=== PATIENT | male | born 1970 | race American Indian/Alaskan Native ===

== ENCOUNTER 2017-08-14 11:10 | Emergency (ER) | payer OTHER ==
[2017-08-14 11:23] VITALS: BP 162/99
--- NOTE | 2017-08-14 12:48 | Emergency Department Report ---
ED General Adult HPI - General Chief complaint: Pain General Stated complaint: DIABETIC/BILATERAL LEG PAIN Time Seen by Provider: 08/14/17 12:24 Source: patient Mode of arrival: Ambulatory Limitations: No Limitations - History of Present Illness Initial comments: This is a 47-year-old male with history of hypertension and non-insulin- dependent diabetes who presents with body aches over the last 2 weeks. He has a pins and needles sensation especially in his lower extremities. He was evaluated by his PCP Dr. Bunch in the [facility] this past Tuesday. Dr. Bunch has arranged for outpatient referrals. Patient came to the ER for a " full physical". He requested x-rays of his legs. No difficulty with ambulation. No recent trauma. -: Gradual, week(s) (2) Location: upper extremity, lower extremity Severity scale (0 -10): 6 Quality: aching Consistency: constant Improves with: none Worsens with: none - Related Data Allergies Allergy/AdvReac Type Severity Reaction Status Date / Time No Known Allergies Allergy Unverified 08/14/17 11:23 ED Review of Systems ROS: Stated complaint: DIABETIC/BILATERAL LEG PAIN Other details as noted in HPI Comment: All other systems reviewed and negative Constitutional: denies: fever, malaise ENT: denies: throat pain Respiratory: denies: cough Cardiovascular: denies: chest pain, palpitations Endocrine: denies: excessive sweating ED Past Medical Hx - Past Medical History Hx Hypertension: Yes Hx Diabetes: Yes ED Physical Exam - General Limitations: No Limitations General appearance: alert, in no apparent distress - Head Head exam: Present: atraumatic, normocephalic - Eye Eye exam: Present: normal appearance - ENT ENT exam: Present: mucous membranes moist - Neck Neck exam: Present: normal inspection. Absent: tenderness, meningismus - Respiratory Respiratory exam: Present: normal lung sounds bilaterally. Absent: respiratory distress, wheezes, rales, rhonchi - Cardiovascular Cardiovascular Exam: Present: regular rate, normal rhythm, normal heart sounds. Absent: bradycardia, tachycardia, systolic murmur, diastolic murmur, rubs, gallop - GI/Abdominal GI/Abdominal exam: Present: soft, normal bowel sounds. Absent: distended, tenderness, guarding, rebound - Rectal Rectal exam: Present: deferred - Extremities Exam Extremities exam: Present: normal inspection - Back Exam Back exam: Present: normal inspection - Neurological Exam Neurological exam: Present: alert, oriented X3 - Psychiatric Psychiatric exam: Present: normal affect, normal mood - Skin Skin exam: Present: warm, dry, intact, normal color. Absent: rash ED Course Vital Signs 08/14/17 11:19 Temperature 98.0 F Pulse Rate 54 L Respiratory 16 Rate Blood Pressure 162/99 O2 Sat by Pulse 92 Oximetry ED Medical Decision Making - Lab Data Result diagrams: 08/14/17 13:12 08/14/17 13:12 Laboratory Results - last 24 hr 08/14/17 08/14/17 13:12 13:12 WBC 7.3 RBC 6.14 H Hgb 15.1 Hct 44.9 MCV 73 L MCH 25 L MCHC 34 RDW 17.5 H Plt Count 265 Lymph % (Auto) 30.9 Moffat % (Auto) 7.6 H Eos % (Auto) 1.6 Baso % (Auto) 0.6 Lymph # 2.3 Moffat # 0.6 Eos # 0.1 Baso # 0.0 Seg Neutrophils % 59.3 Seg Neutrophils # 4.3 Sodium 138 Potassium 4.0 Chloride 99.1 Carbon Dioxide 28 Anion Gap 15 BUN 14 Creatinine 0.9 Estimated GFR > 60 BUN/Creatinine Ratio 16 Glucose 110 H Calcium 8.9 Total Bilirubin 0.70 AST 32 ALT 28 Alkaline Phosphatase 76 Total Protein 7.1 Albumin 4.3 Albumin/Globulin Ratio 1.5 Vital Signs - 24 hr 08/14/17 11:19 Temperature 98.0 F Pulse Rate 54 L Respiratory 16 Rate Blood Pressure 162/99 O2 Sat by Pulse 92 Oximetry - Medical Decision Making 47-year-old male with generalized body aches. Differential diagnosis includes metabolic disturbance, peripheral neuropathy, hypokalemia. Patient is quite well. He appears comfortable. I have referred him to his PCP for further evaluation. He did admit that his PCP did initiate an outpatient evaluation on Tuesday. Critical care attestation.: If time is entered above; I have spent that time in minutes in the direct care of this critically ill patient, excluding procedure time. ED Disposition Clinical Impression: Myalgia, Malaise, Hypertension, DM (diabetes mellitus) Disposition: - TO HOME OR SELFCARE Is pt being admited?: No Does the pt Need Aspirin: No Condition: Stable Instructions: Diabetic Neuropathy (ED) Referrals: PRIMARY CARE, [Primary Care Provider] - 3-5 Days Time of Disposition: 13:51
[2017-08-14 13:31] LABS: Basophils % (Auto) 0.6 % (0.0-1.8); Eosinophils # (Auto) 0.1 K/mm3 (0.0-0.4); Eosinophils % (Auto) 1.6 % (0.0-4.3); Hematocrit 44.9 % (35.5-45.6); Hemoglobin 15.1 gm/dl (11.8-15.2); Lymphocytes # (Auto) 2.3 K/mm3 (1.2-5.4); Lymphocytes % (Auto) 30.9 % (13.4-35.0); Mean Corpuscular HGB Conc 34 % (32-34); Mean Corpuscular Volume 73 fl (84-94); Monocytes # (Auto) 0.6 K/mm3 (0.0-0.8); Monocytes % (Auto) 7.6 % (0.0-7.3); Platelet Count 265 K/mm3 (140-440); Red Blood Count 6.14 M/mm3 (3.65-5.03); Red Cell Distribution Width 17.5 % (13.2-15.2)
[2017-08-14 13:33] LABS: Mean Corpuscular Hemoglobin 25 pg (28-32)
[2017-08-14 13:40] LABS: Alanine Aminotransferase 28 units/L (7-56); Albumin 4.3 g/dL (3.9-5); BUN/Creatinine Ratio 16; Blood Urea Nitrogen 14 mg/dL (9-20); Calcium 8.9 mg/dL (8.4-10.2); Hemolysis Index 38
== END 2017-08-14 14:11 | disposition home or self-care (01) ==
LOC: ED 11:10
DX: E11.9 Type 2 diabetes mellitus without complications (principal); I10 Essential (primary) hypertension
CPT/HCPCS: 36415; 80053; 85025; 99283